=== PATIENT | male | born 1965 | race Caucasian/White ===

== ENCOUNTER 2017-02-22 11:49 | Emergency (ER) | payer MEDICAID ==
[~2017-02-22] VITALS: Ht 172.7 cm; Wt 60.5 kg
[2017-02-22 14:56] VITALS: BP 122/91
== END 2017-02-22 14:59 | disposition home or self-care (01) ==
LOC: ED 13:55
DX: N34.1 Nonspecific urethritis (principal)
CPT/HCPCS: 81003; 99283

== ENCOUNTER 2019-11-21 13:33 | Emergency (ER) | payer MEDICAID, OTHER ==
[~2019-11-21] VITALS: Ht 170.2 cm; Wt 60.6 kg
[2019-11-21 13:54] VITALS: BP 138/82
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
[2019-11-21] MEDS ORDERED: KETOROLAC 30 MG/1 ML ONE (14:51)
[2019-11-21] MEDS ORDERED: METHOCARBAMOL 750 MG TABLET ONE (14:51)
[2019-11-21] MEDS ORDERED: KETOROLAC 30 MG/1 ML IM ONE (15:00)
[2019-11-21] MEDS ORDERED: METHOCARBAMOL 750 MG TABLET PO ONE (15:00)
== END 2019-11-21 16:09 | disposition home or self-care (01) ==
LOC: ED 15:21
DX: S39.012A Strain of muscle, fascia and tendon of lower back, initial encounter (principal); X58.XXXA Exposure to other specified factors, initial encounter; Y93.89 Activity, other specified; Y92.89 Other specified places as the place of occurrence of the external cause; Y99.8 Other external cause status
CPT/HCPCS: 72110; 96372; 99283; J1885